=== PATIENT | male | born 1970 | race Caucasian/White ===

== ENCOUNTER 2019-06-10 07:16 | Emergency (ER) | payer SELFPAY ==
[2019-06-10 07:33] VITALS: BP 138/94
--- NOTE | 2019-06-10 08:03 | UC ---
Skin Complaint HPI - HPI Summary HPI Summary: Patient is a 48yo male presenting with pain over tailbone x2 weeks. Patient states he has had a pilonidal cyst approx 7 years ago that was lanced. States this feels like that. He notes 7/10 pain with sitting and 10/10 pain with lifting. Denies known swelling. Denies drainage or bleeding. Denies fever and chills. Denies n/v/d. Denies injury or trauma. States it has become difficult to work. States he has taken otc ibuprofen and "pain gel" without any relief. States he had "similar cyst surgeries in on his rectum but the tailbone is new within the last 7 years." - History of Current Complaint Chief Complaint: Melissa Stated Complaint: cyst on tailbone Hx Obtained From: Patient Onset/Duration: Gradual Onset, Lasting Weeks Onset Severity: Mild Current Severity: Severe Pain Intensity: 10 Pain Scale Used: 0-10 Numeric - Allergy/Home Medications Allergies/Adverse Reactions: Allergies Allergy/AdvReac Type Severity Reaction Status Date / Time No Known Allergies Allergy Verified 06/10/19 07:33 Home Medications: Home Medications Ibuprofen TAB* [Advil TAB*] 800 mg PO Q6H PRN 06/10/19 [History Confirmed ] PMH/Surg Hx/FS Hx/Imm Hx Previously Healthy: Yes - Surgical History Surgical History: Yes Surgery Procedure, Year, and Place: pilonidal cyst surgies - Family History Known Family History: Positive: Non-Contributory - Social History Alcohol Use: Daily Alcohol Amount: 1 beer nightly Substance Use Type: None Smoking Status (MU): Never Smoked Tobacco Review of Systems All Other Systems Reviewed And Are Negative: Yes Constitutional: Positive: Negative. Negative: Fever, Chills Skin: Positive: Other - "tailbone cyst". Negative: Rash, Bruising Respiratory: Positive: Negative Cardiovascular: Positive: Negative Gastrointestinal: Positive: Negative. Negative: Abdominal Pain, Vomiting, Diarrhea, Nausea Neurovascular: Positive: Negative Musculoskeletal: Positive: Arthralgia - tailbone pain. Negative: Edema Neurological: Positive: Negative Physical Exam Triage Information Reviewed: Yes Appearance: Well-Appearing, Well-Nourished, Pain Distress Vital Signs: Initial Vital Signs Temp 98.1 F 06/10/19 07:27 Pulse 90 06/10/19 07:27 Resp 16 11/30/19 07:27 BP 138/94 06/10/19 07:27 Pulse Ox 97 06/10/19 07:27 Vital Signs Reviewed: Yes Eyes: Positive: Conjunctiva Clear ENT: Positive: Hearing grossly normal Neck: Positive: Supple Respiratory Exam: Normal Respiratory: Positive: Lungs clear, No respiratory distress Cardiovascular Exam: Normal Cardiovascular: Positive: RRR Musculoskeletal Exam: Normal Musculoskeletal: Positive: ROM Intact, No Edema Neurological: Positive: Alert Psychological: Positive: Age Appropriate Behavior Skin Exam: Normal - no erythema, ecchymosis, fluctuance, warmth, drainage, or bleeding Course/Dx - Course Course Of Treatment: I treated patient with bactrim for possible infection. No actively draining pilonidal cyst or evident area in need of I&D today. I also gave short course of [place] for pain relief and instructed to follow up with [facility], physician referral, or surgery as soon as possible. Instructed to go to ED with new or worsening symptoms. Patient afebrile. Patient voiced understanding and agreed with treatment plan. - Differential Diagnoses - Skin Complaint Differential Diagnoses: Abscess, MRSA - Diagnoses Provider Diagnosis: Pilonidal cyst without abscess Discharge ED - Sign-Out/Discharge Documenting (check all that apply): Patient Departure All imaging exams completed and their final reports reviewed: No Studies - Discharge Plan Condition: Stable Disposition: HOME Prescriptions: HYDROcodone/ACETAMIN 5-325 MG* [[place] 5-325 TAB*] 1 tab PO Q6H PRN #12 tab MDD 4 PRN Reason: Pain - Moderate Sulfamethox/Trimethoprim DS* [Bactrim DS 800/160 TAB*] 1 tab PO BID #14 tab Patient Education Materials: Pilonidal Cyst (ED) Forms: *Work Release Referrals: [facility] [Outside] [facility] [Outside] Kimberly Ortiz MD [Medical Doctor] - Additional Instructions: Take Bactrim as prescribed for treatment of possible infection. Take the pain medication as prescribed for pain relief. It is important that you follow up with the [facility] or Physician Referral within the next few days for further evaluation. Re turn or go to the Emergency Room if you experience drainage from the area, fever, or nausea and vomiting. - Billing Disposition and Condition Condition: STABLE Disposition: Home
== END 2019-06-10 08:59 | disposition home or self-care (01) ==
LOC: UCEAST 07:16
DX: L05.91 Pilonidal cyst without abscess (principal)
CPT/HCPCS: 99212; G0463